=== PATIENT | male | born 2000 | race Caucasian/White ===

== ENCOUNTER 2019-05-30 10:58 | Emergency (ER) | payer MEDICAID ==
[~2019-05-30] VITALS: Ht 190.5 cm; Wt 70.4 kg
[2019-05-30 11:16] VITALS: Ht 190.5 cm; Wt 70.4 kg
[2019-05-30 11:45] LABS: BASOPHIL % 0.3 % (0-2); PLATELET COUNT 213 x10^3mcL (130-400); RED CELL DISTRIBUTION WIDTH 14.1 % (11.5-14.5)
[2019-05-30 12:41] LABS: CALCIUM 9.9 mg/dL (8.5-10.1); CARBON DIOXIDE 27.9 mmol/L (21-32); CHLORIDE SERUM 105 mmol/L (98-107); CREATININE SERUM 1.1 mg/dL (0.7-1.3); GFR1 > 60 mL/min; GLUCOSE SERUM 76 mg/dL (74-106); POTASSIUM SERUM 4.4 mmol/L (3.5-5.1); SODIUM SERUM 142 mmol/L (136-145)
[2019-05-30 12:48] LABS: ALBUMIN 4.5 g/dL (3.4-5.0); ALKALINE PHOSPHATASE 119 U/L (46-116); ALT/SGPT 24 U/L (16-63); AMYLASE 62 U/L (25-115); AST/SGOT 14 U/L (15-37); BILIRUBIN TOTAL 0.52 mg/dL (0.20-1.00); LIPASE 82 IU/L (73-393)
[2019-05-30 14:57] VITALS: BP 115/71
== END 2019-05-30 14:57 | disposition home or self-care (01) ==
LOC: ED 10:58
DX: K52.9 Noninfective gastroenteritis and colitis, unspecified (principal)
CPT/HCPCS: 36415

== ENCOUNTER 2019-07-22 08:54 | Day surgery (SDC) | payer MEDICAID ==
[~2019-07-22] VITALS: Ht 188 cm; Wt 68.0 kg
[2019-07-22 10:10] VITALS: BP 108/66
[2019-07-22 14:39] VITALS: BP 107/71
== END 2019-07-22 12:40 | disposition home or self-care (01) ==
LOC: GI 08:54 → OR 11:30 → GI 11:30 → OR 12:30 → GI 12:40
DX: K62.5 Hemorrhage of anus and rectum (principal); K63.89 Other specified diseases of intestine
CPT/HCPCS: 45378; J1200; J1610; J2250; J2310; J3010; J3490

== ENCOUNTER 2019-12-16 16:29 | Emergency (ER) | payer MEDICAID ==
[~2019-12-16] VITALS: Ht 190.5 cm; Wt 73.9 kg
[2019-12-16 16:36] VITALS: Ht 190.5 cm; Wt 73.9 kg
[2019-12-16 18:00] VITALS: BP 128/79
== END 2019-12-16 18:00 | disposition home or self-care (01) ==
LOC: ED 16:29
DX: S01.81XA Laceration without foreign body of other part of head, initial encounter (principal); W22.8XXA Striking against or struck by other objects, initial encounter; Y93.68 Activity, volleyball (beach) (court); Y92.89 Other specified places as the place of occurrence of the external cause; Y99.8 Other external cause status
CPT/HCPCS: 90715

== ENCOUNTER 2019-12-21 23:18 | Emergency (ER) | payer OTHER ==
[~2019-12-21] VITALS: Ht 190.5 cm; Wt 75.3 kg
[2019-12-21 23:49] VITALS: BP 119/71; Ht 190.5 cm; Wt 75.3 kg
== END 2019-12-22 00:49 | disposition home or self-care (01) ==
LOC: ED 23:18
DX: S01.81XD Laceration without foreign body of other part of head, subsequent encounter (principal); X58.XXXD Exposure to other specified factors, subsequent encounter